=== PATIENT | male | born 1985 | race Caucasian/White ===

== ENCOUNTER 2019-09-15 10:35 | Emergency (ER) | payer SELFPAY ==
--- NOTE | 2019-09-15 11:59 | ED ---
Lower Extremity - HPI Summary HPI Summary: 34-year-old homeless man presents to the emergency department today complaining of right knee and hip pain. Patient states that she was walking outside around [place] time and slipped on the ice and his right knee gave out and he landed on his right hip. Patient states he currently has a 10 right hip and knee pain which radiates down his right ankle. Patient is able to ambulate. Patient has been taking 800 mg ibuprofen as needed for pain. Patient also states "one of my testicles have been swollen since I fell also". Patient denies other symptoms such as fever, chest pain, abdominal pain, urination, rash. - History of Current Complaint Chief Complaint: EDExtremityLower Stated Complaint: FELL/RIGHT SIDE PAIN PER PT Time Seen by Provider: 09/15/19 11:48 Hx Obtained From: Patient Mechanism Of Injury: Fall From A Standing Position, Twisted Onset of Pain: Prior to Arrival Onset/Duration: Weeks Severity Initially: Moderate Severity Currently: Moderate Pain Intensity: 5 Pain Scale Used: 0-10 Numeric Timing: Constant Location: Is Discrete @ - R hip and knee Character Of Pain: Aching Associated Signs And Symptoms: Positive: Knee Pain. Negative: Swelling, Redness , Bruising, Fever, Weakness, Syncope Aggravating Factor(s): Ambulation, Movement, Weight Bearing, Stairs Alleviating Factor(s): Rest Able to Bear Weight: Yes - Allergies/Home Medications Allergies/Adverse Reactions: Allergies Allergy/AdvReac Type Severity Reaction Status Date / Time amoxicillin Allergy Hives Verified 09/15/19 11:10 aspirin Allergy Hives Verified 09/15/19 11:10 PMH/Surg Hx/FS Hx/Imm Hx Infectious Disease History: No Infectious Disease History: Denies: Traveled Outside the [place] in Last 30 Days - Social History Alcohol Use: None Substance Use Type: Reports: Marijuana Smoking Status (MU): Light Every Day Tobacco Smoker Review of Systems Constitutional: Negative Eyes: Negative ENT: Negative Cardiovascular: Negative Respiratory: Negative Gastrointestinal: Negative Genitourinary: Negative Positive: Arthralgia, Myalgia. Negative: Edema Skin: Negative Neurological: Negative Psychological: Normal All Other Systems Reviewed And Are Negative: Yes Physical Exam - Summary Physical Exam Summary: Inspection reveals no obvious trauma, ecchymosis, erythema or swelling. Patient is able to ambulate and bear weight. Patient has full range of motion of the hip and knee with no evidence of fracture. Negative anterior drawer and posterior drawer. Patient has mild pain of the knee with varus and valgus stress. Triage Information Reviewed: Yes Vital Signs On Initial Exam: Initial Vitals Temp Pulse Resp BP Pulse Ox 98.2 F 71 16 159/95 98 09/15/19 11:06 09/15/19 11:06 09/15/19 11:06 09/15/19 11:06 09/15/19 11:06 Vital Signs Reviewed: Yes Appearance: Positive: Well-Appearing, No Pain Distress, Well-Nourished Skin: Positive: Warm, Skin Color Reflects Adequate Perfusion Eyes: Positive: EOMI, AKIKO ENT: Positive: Hearing grossly normal Respiratory/Lung Sounds: Positive: Clear to Auscultation, Breath Sounds Present Cardiovascular: Positive: RRR, S1, S2 Abdomen Description: Positive: Nontender, Soft Bowel Sounds: Positive: Present Male Genital Exam: Positive: Normal Genitalia, No Hernia, Other - Inspection of the external genitalia has no lesions or masses. Patient complains of no testicular pain with palpation. There appears to be no swelling of the testicles. No evidence of inguinal hernia bilaterally. Cremasteric reflex intact bilaterally.. Negative: Inguinal Tenderness, Lesions, Scrotum Tenderness (R), Scrotum Tenderness (L), Testicular Tenderness (R), Testicular Tenderness (L), Urethral Discharge Musculoskeletal: Positive: Strength/ROM Intact Neurological: Positive: Sensory/Motor Intact, Alert, Oriented to Person Place, Time, Speech Normal. Negative: Normal Gait - Patient has an antalgic gait. Psychiatric: Positive: Normal, Affect/Mood Appropriate AVPU Assessment: Alert Procedures - Sedation Patient Received Moderate/Deep Sedation with Procedure: No - Splinting Right Lower Extremity Pre-Made Type: knee immobilizer Pre-Proc Neuro Vasc Exam: normal Post-Proc Neuro Vasc Exam: normal Splint Applied by Provider: [facility] - Vital Signs Vital Signs Temp Pulse Resp BP Pulse Ox 09/15/19 11:06 98.2 F 71 16 159/95 98 - Laboratory Lab Statement: Any lab studies that have been ordered have been reviewed, and results considered in the medical decision making process. Lower Extremity Course/Dx - Course Course Of Treatment: Patient was evaluated in the emergency department today for right knee pain and right hip pain. Patient seen and examined vitals are stable and he is afebrile. Physical exam showed no evidence of fracture patient had no gross deformity was able to bear weight and full range of motion. Physical exam was consistent with ligamentous injury of the right knee and hip. X-rays were deemed unnecessary due to differential diagnosis. Patient is to follow-up with Dr. Morin orthopedist in 5 days for further evaluation and management. Patient was given right knee immobilizer until orthopedics. Patient was told to take ibuprofen as needed for pain, rest, elevate, ice his knee. - Diagnoses Differential Diagnosis/HQI/PQRI: Positive: Contusion, Sprain, Strain Provider Diagnoses: Right knee pain, Right hip pain Discharge ED - Sign-Out/Discharge Documenting (check all that apply): Patient Departure - Discharge Plan Condition: Stable Disposition: HOME Patient Education Materials: Knee Pain (ED) Referrals: Kyler Wall MD [Medical Doctor] - 5 Days No Primary Care Phys,NOPCP [Primary Care Provider] - Additional Instructions: * Ibuprofen 600mg three times daily with meals for pain. * Follow up with orthopedic physician in 5-7 days. * If numbness, tingling, decreased sensation, increased pain, temperature changes or pallor noted in toes, come back to ER immediately. * Protect the area. For your comfort level, do not bear weight, pull or push until you can injury is somewhat healed. This may involve the need for immobilization or crutches for a period of time. * Rest the involved area, but not too long. You may need to be off your injury for some time to allow for healing, however excessive immobilization of joints can lead to stiffness and delay healing time. Early mobilization is encouraged if it is pain-free. * Ice. Not directly on the skin. Cover with a towel. Apply ice no more than 30 minutes at a time * Compression: You may use and keep an kervin wrap bandage over the injury to decrease swelling. Again, this should be limited and be taken off periodically to encourage early range of motion and mobilization. * Elevate: Try to elevate the injured area above the heart whenever possible. - Billing Disposition and Condition Condition: STABLE Disposition: Home
[2019-09-15 12:53] VITALS: BP 144/88
[2019-09-15 13:02] LABS: HIV 4th Generation Nonreactive (Nonreactive)
== END 2019-09-15 12:52 | disposition home or self-care (01) ==
LOC: ED 10:35
DX: M25.561 Pain in right knee (principal); M25.551 Pain in right hip; F17.200 Nicotine dependence, unspecified, uncomplicated; Z88.0 Allergy status to penicillin; Z88.8 Allergy status to other drugs, medicaments and biological substances
CPT/HCPCS: 36415; 87389; 99282

== ENCOUNTER 2023-08-27 16:20 | Inpatient (IN) ==
[2023-08-27 17:45] LABS: ABS Basophils 0.1 10^3/uL (0.0-0.1); ABS Eosinophils 0.1 10^3/uL (0.0-0.5); ABS Lymphocytes 2.5 10^3/uL (1.0-4.8); ABS Monocytes 0.6 10^3/uL (0.0-1.1); ABS Neutrophils 7.5 10^3/uL (1.5-7.6); Eosinophil % 0.9 %; Hematocrit 46.5 % (38-53); Hemoglobin 16.2 g/dL (13.2-16.3); Lymphocyte % 23.4 %; Mean Corpuscular Hemoglobin 32.1 pg (27-33); Mean Corpuscular Hgb Conc 34.8 g/dL (31-36); Mean Corpuscular Volume 92.4 fL (80-97); Mean Platelet Volume 7.9 fL (7.5-11.2); Platelet Count 251 10^3/uL (150-450); Red Blood Count 5.03 10^6/uL (4.06-5.63); Red Cell Distribution Width 13.1 % (12-17); White Blood Count 10.8 10^3/uL (3.6-10.2)
[2023-08-27 18:03] LABS: ALT 10 U/L (7-52); AST 11 U/L (13-39); Albumin 4.8 g/dL (3.2-5.2); Albumin/Globulin Ratio 1.9 (1-3); Alkaline Phosphatase 86 U/L (35-149); Anion Gap 6 mmol/L (2-16); Blood Urea Nitrogen 11 mg/dL (6-24); CO2 Carbon Dioxide 27 mmol/L (22-32); Chloride 104 mmol/L (101-111); Creatinine, Serum 0.87 mg/dL (0.67-1.17); Globulin 2.5 g/dL (2-4); Glucose 93 mg/dL (70-100); Sodium 137 mmol/L (135-145); Total Bilirubin 0.4 mg/dL (0.2-1.0); Total Protein 7.3 g/dL (6.4-8.9); eGFR CKD-EPI 112.6 (>60)
[2023-08-27 18:12] LABS: Acetaminophen < 15 mcg/mL; Alcohol, S < 13 mg/dL (<13); Salicylate < 2.50 mg/dL (<30)
[2023-08-27 18:26] LABS: TSH Ultra Thyroid Stim Horm 1.63 mcIU/mL (0.34-5.60)
[2023-08-27 22:07] LABS: Urine Benzodiazepine Screen None Detected (None Detect); Urine Cannabinoids Screen Presumptive Positive (None Detect); Urine Opiates Screen None Detected (None Detect)
[2023-08-27 22:09] LABS: Urine Appearance Clear; Urine Bilirubin Negative (Negative); Urine Blood 1+ (Negative); Urine Color Yellow; Urine Glucose Negative (Negative); Urine Ketones Negative (Negative); Urine Nitrite Negative (Negative); Urine Protein Negative (Negative); Urine Specific Gravity 1.014 (1.002-1.030); Urine Urobilinogen Negative (Negative)
[2023-08-27 23:29] LABS: Urine Bacteria Absent (Absent); Urine Red Blood Cell 1+(3-5/hpf) (Absent); Urine Squamous Epithelial Cell Present (Absent); Urine White Blood Cell Trace(0-5/hpf) (Absent)
[2023-08-27] MEDS ORDERED: Al Hydrox/Mg Hydrox/Simet LIQ 30 ML UDC PO PRN (23:50)
[2023-08-27] MEDS ORDERED: Albuterol HFA INHALER 8 gm MDI INH PRN (23:57)
[2023-08-28 07:46] LABS: ABS Basophils 0.1 10^3/uL (0.0-0.1); ABS Eosinophils 0.2 10^3/uL (0.0-0.5); ABS Lymphocytes 2.4 10^3/uL (1.0-4.8); ABS Monocytes 0.6 10^3/uL (0.0-1.1); ABS Neutrophils 4.6 10^3/uL (1.5-7.6); Eosinophil % 2.4 %; Hematocrit 44.7 % (38-53); Hemoglobin 15.3 g/dL (13.2-16.3); Lymphocyte % 30.6 %; Mean Corpuscular Hemoglobin 31.7 pg (27-33); Mean Corpuscular Hgb Conc 34.1 g/dL (31-36); Mean Platelet Volume 7.8 fL (7.5-11.2); Platelet Count 237 10^3/uL (150-450); Red Blood Count 4.81 10^6/uL (4.06-5.63); Red Cell Distribution Width 13.4 % (12-17); White Blood Count 7.9 10^3/uL (3.6-10.2)
[2023-08-28 08:06] LABS: HDL Cholesterol 29.7 mg/dL
[2023-08-28] MEDS: Vitamin THERAPEUTIC TAB PO SCH (08:28)
[2023-08-28] MEDS ORDERED: Nicotine GUM 4MG FRUIT FLAVOR PO PRN (10:45)
[2023-08-28] MEDS ORDERED: Nicotine Lozenge mini 4 MG LOZNG.MINI MT PRN (10:45)
[2023-08-28] MEDS: Nicotine PATCH 21 MG/24 HR PATCH TRANSDERM SCH (11:30)
[2023-08-28] MEDS: DULoxetine DR 30 mg CAP PO SCH (11:30)
[2023-08-29] MEDS: Vitamin THERAPEUTIC TAB PO SCH (07:31)
[2023-08-29] MEDS: Nicotine PATCH 21 MG/24 HR PATCH TRANSDERM SCH (07:31)
[2023-08-29] MEDS: DULoxetine DR 30 mg CAP PO SCH (07:32)
[2023-08-30] MEDS: Nicotine PATCH 21 MG/24 HR PATCH TRANSDERM SCH (07:49)
[2023-08-30] MEDS: Vitamin THERAPEUTIC TAB PO SCH (07:50)
[2023-08-30] MEDS: DULoxetine DR 30 mg CAP PO SCH (07:50)
[2023-08-31] MEDS: Nicotine PATCH 21 MG/24 HR PATCH TRANSDERM SCH (07:48)
[2023-08-31] MEDS: DULoxetine DR 30 mg CAP PO SCH (07:48)
[2023-08-31] MEDS: Vitamin THERAPEUTIC TAB PO SCH (07:48)
[2023-09-01] MEDS: Nicotine PATCH 21 MG/24 HR PATCH TRANSDERM SCH (08:20)
[2023-09-01] MEDS: Vitamin THERAPEUTIC TAB PO SCH (08:21)
[2023-09-01] MEDS: DULoxetine DR 30 mg CAP PO SCH (08:22)
[2023-09-02] MEDS: DULoxetine DR 30 mg CAP PO SCH (07:22)
[2023-09-02] MEDS: Nicotine PATCH 21 MG/24 HR PATCH TRANSDERM SCH (07:22)
[2023-09-02] MEDS: Vitamin THERAPEUTIC TAB PO SCH (07:24)
[2023-09-02 07:43] VITALS: BP 168/80
[2023-09-03] MEDS ORDERED: DULoxetine DR 60 mg CAP PO SCH (09:00)
== END 2023-09-02 11:48 | disposition home or self-care (01) | DRG 754 ==
LOC: ED 16:20 → EDHOLD 22:15 → BSU 22:27
PROVIDERS: ADMIT Psychiatry & Neurology Psychiatry; ATTEND Psychiatry & Neurology Psychiatry